=== PATIENT | male | born 1995 | race Two or more races ===

== ENCOUNTER 2017-09-06 12:45 | Emergency (ER) | payer OTHER ==
[~2017-09-06] VITALS: Ht 175.3 cm; Wt 74.8 kg
[~2017-09-06 12:45] MED LIST: LEVE500T9 PO
[2017-09-06 12:51] VITALS: BP 127/66
== END 2017-09-06 14:42 | disposition home or self-care (01) ==
LOC: ER 12:47
DX: M79.641 Pain in right hand (principal); M79.89 Other specified soft tissue disorders; G40.909 Epilepsy, unspecified, not intractable, without status epilepticus; W54.0XXA Bitten by dog, initial encounter; Y93.89 Activity, other specified; Y92.89 Other specified places as the place of occurrence of the external cause; Y99.8 Other external cause status
CPT/HCPCS: 99281; A4606; Z7610; Z7502

== ENCOUNTER 2017-09-20 09:06 | Emergency (ER) | payer OTHER ==
[~2017-09-20] VITALS: Ht 175.3 cm; Wt 77.1 kg
--- NOTE | 2017-09-20 09:20 | NUR ---
AAOX3, CAME TO ER C/O LEFT EYE PAIN/DISCOMFORT, EYELID SWELLING, NO INJURY. RR IS EVEN AND UNLABORED WITH NAD NOTED. SKIN IS WARM AND DRY. AWAITING MD FOR EVAL.
[2017-09-20] MEDS ORDERED: diphenhydrAMINE HCL 25 MG CAPSULE PO ONE (09:30)
[2017-09-20] MEDS ORDERED: diphenhydrAMINE HCL 25 MG CAPSULE ONE (09:32)
[2017-09-20 09:37] LABS: BASOPHILS % (AUTO) 0.6 % (0.0-2.0); EOSINOPHILS # (AUTO) 0.2 /CMM (0.0-0.7); EOSINOPHILS % (AUTO) 2.7 % (0.0-6.0); HEMATOCRIT 45 % (39-51); HEMOGLOBIN 15.5 g/dL (13.5-17.5); LYMPHOCYTES # (AUTO) 1.7 /CMM (0.8-4.8); LYMPHOCYTES % (AUTO) 30.7 % (20.0-44.0); MEAN CORPUSCULAR HEMOGLOBIN 29 PG (26.0-33.0); MEAN CORPUSCULAR HGB CONC 35 g/dl (31.0-36.0); MEAN CORPUSCULAR VOLUME 83 fL (80-96); MONOCYTES # (AUTO) 0.4 /CMM (0.1-1.30); MONOCYTES % (AUTO) 6.8 % (2.0-12.0); NEUTROPHILS # (AUTO) 3.3 /CMM (1.8-8.9); NEUTROPHILS % (AUTO) 59.2 % (43.0-81.0); PLATELET COUNT (AUTO) 198 /CMM (150-450); RDW COEFFICIENT OF VARIATION 13.2 (11.5-15.0); RED BLOOD CELL COUNT(AUTO) 5.43 MIL/uL (4.5-6.0); WHITE BLOOD COUNT (AUTO) 5.6 K/uL (4.3-11.0)
[2017-09-20 09:46] LABS: CALCIUM, SERUM 8.9 mg/dL (8.5-10.1); CREATININE 0.9 mg/dL (0.6-1.3); POTASSIUM 3.9 mmol/L (3.5-5.1)
[2017-09-20] MEDS ORDERED: IOHEXOL-300 100 ML VIAL IV ONE (09:56)
[2017-09-20] MEDS ORDERED: CT SWABBABLE VALVE TRANS SET 1 EA INFUS.SET MC ONE (09:57)
[2017-09-20] MEDS ORDERED: IV NS 0.9% 250 ML IV ONE (09:57)
[2017-09-20 10:50] VITALS: BP 125/78
--- NOTE | 2017-09-20 10:56 | NUR ---
IV removed. Catheter intact and site benign. Pressure and 4x4 applied to site. No bleeding noted.Patient discharged to home in stable condition. Written and verbal after care instructions given. Patient verbalizes understanding of instruction.
== END 2017-09-20 10:58 | disposition home or self-care (01) ==
LOC: ER 09:08
DX: J30.9 Allergic rhinitis, unspecified (principal); G40.909 Epilepsy, unspecified, not intractable, without status epilepticus; Z86.61 Personal history of infections of the central nervous system
CPT/HCPCS: 36415; 70450-TC; 70487-TC; 80048-TC; 83605-TC; 85025-TC; A4606; J7050; Q0163; Q9967; Z7610

== ENCOUNTER 2017-11-18 23:27 | Emergency (ER) | payer OTHER ==
[~2017-11-18] VITALS: Ht 172.7 cm; Wt 77.1 kg
[2017-11-18 23:32] VITALS: BP 130/85
[2017-11-19] MEDS: PSEUDOEPHEDRINE HCL 30 MG TABLET PO ONE (01:22)
== END 2017-11-19 01:23 | disposition home or self-care (01) ==
LOC: ER 23:28
DX: B30.9 Viral conjunctivitis, unspecified (principal); H66.92 Otitis media, unspecified, left ear; J02.9 Acute pharyngitis, unspecified; G03.9 Meningitis, unspecified
CPT/HCPCS: 99283; A4606; Z7610

== ENCOUNTER 2018-09-04 09:17 | Emergency (ER) | payer OTHER ==
[~2018-09-04] VITALS: Ht 172.7 cm; Wt 80.7 kg
--- NOTE | 2018-09-04 09:45 | NUR ---
PT BIB SELF AND DAD C/O DIZZINESS AND RUNNY NOSE X 3-4 DAYS. ALERT AND ORIENTED X 4, VERBALLY RESPONSIVE AND ABLE TO MAKE NEEDS KNOWN. SKIN WARM TO TOUCH, BREATHING EVENLY AND UNLABORED. ON ROOM AIR, KEPT COMFORTABLE. WILL CONTINUE TO MONITOR ACCORDINGLY.
[2018-09-04] MEDS ORDERED: KETOROLAC TROMETHAMINE INJ 30 MG/ML VIAL IV ONE (10:30)
[2018-09-04] MEDS ORDERED: ONDANSETRON HCL/PF 4 MG/2 ML VIAL IVP ONE (10:30)
[2018-09-04] MEDS ORDERED: IV NS 0.9% 1,000 ML BAG IV ONE (10:30)
[2018-09-04 10:32] LABS: BASOPHILS % (AUTO) 0.3 % (0.0-2.0); EOSINOPHILS % (AUTO) 1.8 % (0.0-6.0); HEMATOCRIT 49 % (39-51); LYMPHOCYTES # (AUTO) 1.2 /CMM (0.8-4.8); LYMPHOCYTES % (AUTO) 22.5 % (20.0-44.0); MEAN CORPUSCULAR HGB CONC 35 g/dl (31.0-36.0); MEAN CORPUSCULAR VOLUME 85 fL (80-96); MONOCYTES # (AUTO) 0.6 /CMM (0.1-1.30); NEUTROPHILS # (AUTO) 3.3 /CMM (1.8-8.9); NEUTROPHILS % (AUTO) 63.4 % (43.0-81.0); PLATELET COUNT (AUTO) 170 /CMM (150-450); RED BLOOD CELL COUNT(AUTO) 5.76 MIL/uL (4.5-6.0); WHITE BLOOD COUNT (AUTO) 5.1 K/uL (4.3-11.0)
[2018-09-04] MEDS ORDERED: KETOROLAC TROMETHAMINE 15 MG/ML VIAL ONE (10:34)
[2018-09-04] MEDS ORDERED: ONDANSETRON HCL/PF 4 MG/2 ML VIAL ONE (10:34)
[2018-09-04 10:42] LABS: CALCIUM, SERUM 9.5 mg/dL (8.5-10.1); POTASSIUM 3.6 mmol/L (3.5-5.1)
[2018-09-04 11:39] VITALS: BP 135/70
--- NOTE | 2018-09-04 11:41 | NUR ---
Patient discharged to home in stable condition. Written and verbal after care instructions given. Patient verbalizes understanding of instruction.IV removed. Catheter intact and site benign. Pressure and 4x4 applied to site. No bleeding noted.
== END 2018-09-04 11:40 | disposition home or self-care (01) ==
LOC: ER 09:21
DX: R42 Dizziness and giddiness (principal); J06.9 Acute upper respiratory infection, unspecified; G40.909 Epilepsy, unspecified, not intractable, without status epilepticus; Z98.890 Other specified postprocedural states
CPT/HCPCS: 36415; 80048; 85025; 96361; 96374; 96375; 99283; A4606; J1885; J2405; J7030; Z7610

== ENCOUNTER 2019-04-03 10:59 | Emergency (ER) | payer OTHER ==
[~2019-04-03] VITALS: Ht 175.3 cm; Wt 79.4 kg
[2019-04-03 11:06] VITALS: BP 113/73
== END 2019-04-03 13:24 | disposition home or self-care (01) ==
LOC: ER 10:59
DX: S56.812A Strain of other muscles, fascia and tendons at forearm level, left arm, initial encounter (principal); Z98.890 Other specified postprocedural states; Z79.899 Other long term (current) drug therapy; W18.39XA Other fall on same level, initial encounter; Y93.66 Activity, soccer; Y92.322 Soccer field as the place of occurrence of the external cause; Y99.8 Other external cause status
CPT/HCPCS: 73090-TC

== ENCOUNTER 2019-07-07 04:06 | Emergency (ER) | payer OTHER ==
[~2019-07-07] VITALS: Ht 175.3 cm; Wt 81.2 kg
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
[2019-07-07] MEDS ORDERED: LORAZEPAM 1 MG TABLET ONE (04:44)
--- NOTE | 2019-07-07 04:46 | NUR ---
MOBILE PHLEBOTOMIST AT BEDSIDE. LABS SENT.
[2019-07-07] MEDS ORDERED: LORAZEPAM 1 MG TABLET PO ONE (05:00)
[2019-07-07 05:09] LABS: CALCIUM, SERUM 8.7 mg/dL (8.5-10.1); POTASSIUM 3.6 mmol/L (3.5-5.1)
[2019-07-07] MEDS ORDERED: ACETAMINOPHEN 325 MG TABLET ONE (05:48)
--- NOTE | 2019-07-07 05:58 | NUR ---
Patient discharged to home in stable condition. Written and verbal after care instructions given. Patient verbalizes understanding of instruction.
[2019-07-07 05:59] VITALS: BP 122/67
[2019-07-07] MEDS ORDERED: ACETAMINOPHEN 325 MG TABLET PO ONE (06:00)
== END 2019-07-07 05:59 | disposition home or self-care (01) ==
LOC: ER 04:07
DX: G40.909 Epilepsy, unspecified, not intractable, without status epilepticus (principal); Z79.899 Other long term (current) drug therapy
CPT/HCPCS: 36415; 80048-TC; 80177

== ENCOUNTER 2019-11-08 00:50 | Emergency (ER) | payer SELFPAY ==
[~2019-11-08] VITALS: Ht 175.3 cm; Wt 80.3 kg
--- NOTE | 2019-11-08 01:00 | NUR ---
bib father for evaluation of possible seizure, pt currently A, Ox4. w/ no c.o pain or discomfort. PMHx of seizure , receiving Keppra BID. Pt was placed on a monitor . VSS. will cont to monitor
[2019-11-08] MEDS: IV NS 0.9% 1,000 ML BAG IV ONE (01:14)
[2019-11-08 01:18] LABS: BASOPHILS # (AUTO) 0.1 /CMM (0.0-0.2); BASOPHILS % (AUTO) 0.9 % (0.0-2.0); EOSINOPHILS % (AUTO) 1.6 % (0.0-6.0); HEMATOCRIT 46 % (39-51); HEMOGLOBIN 15.6 g/dL (13.5-17.5); LYMPHOCYTES # (AUTO) 2.6 /CMM (0.8-4.8); LYMPHOCYTES % (AUTO) 39.1 % (20.0-44.0); MEAN CORPUSCULAR HGB CONC 34 g/dl (31.0-36.0); MEAN CORPUSCULAR VOLUME 86 fL (80-96); MONOCYTES # (AUTO) 0.4 /CMM (0.1-1.30); MONOCYTES % (AUTO) 5.9 % (2.0-12.0); NEUTROPHILS # (AUTO) 3.5 /CMM (1.8-8.9); NEUTROPHILS % (AUTO) 52.5 % (43.0-81.0); PLATELET COUNT (AUTO) 170 /CMM (150-450); WHITE BLOOD COUNT (AUTO) 6.6 K/uL (4.3-11.0)
[2019-11-08 01:26] LABS: CALCIUM, SERUM 8.4 mg/dL (8.5-10.1); POTASSIUM 3.5 mmol/L (3.5-5.1)
[2019-11-08 01:58] VITALS: BP 66/121
== END 2019-11-08 01:59 | disposition home or self-care (01) ==
LOC: ER 00:50
DX: G40.909 Epilepsy, unspecified, not intractable, without status epilepticus (principal); F17.200 Nicotine dependence, unspecified, uncomplicated; Z98.890 Other specified postprocedural states; Z79.899 Other long term (current) drug therapy
CPT/HCPCS: 36415; 80048; 85025; 99283; J7030

== ENCOUNTER 2020-10-28 16:21 | Emergency (ER) | payer OTHER ==
[~2020-10-28] VITALS: Ht 175.3 cm; Wt 77.1 kg
--- NOTE | 2020-10-28 17:00 | NUR ---
HEADACHE X "FEW DAYS" PATIENT A/OX4, BREATHING EVEN AND UNLABORED, NO S/SX OF STROKE AT THIS TIME. CONNECTED TO THE MONITOR.
--- NOTE | 2020-10-28 17:10 | NUR ---
IV LINE ESTABLISHED.
[2020-10-28] MEDS ORDERED: DEXAMETHASONE SOD PHOSPHATE 4 MG/ML VIAL ONE (17:35)
[2020-10-28] MEDS ORDERED: KETOROLAC TROMETHAMINE INJ 30 MG/ML VIAL ONE (17:35)
[2020-10-28 17:45] VITALS: BP 132/77
[2020-10-28] MEDS: DEXAMETHASONE SOD PHOSPHATE 10 MG/ML VIAL IV ONE (17:46)
[2020-10-28] MEDS: KETOROLAC TROMETHAMINE INJ 30 MG/ML VIAL IV ONE (17:47)
[2020-10-28] MEDS: IV NS 0.9% 1,000 ML BAG IV ONE (17:47)
[2020-10-28] MEDS ORDERED: IBUP-1955 PO (18:11)
== END 2020-10-28 18:21 | disposition home or self-care (01) ==
LOC: ER 16:29
DX: R51.9 Headache, unspecified (principal); G40.909 Epilepsy, unspecified, not intractable, without status epilepticus; F17.200 Nicotine dependence, unspecified, uncomplicated; Z98.890 Other specified postprocedural states; Z79.899 Other long term (current) drug therapy
CPT/HCPCS: 96361; 96374; 96375; 99284; J1100; J1885; J7030

== ENCOUNTER 2021-12-16 01:32 | Emergency (ER) | payer OTHER ==
[~2021-12-16] VITALS: Ht 175.3 cm; Wt 80.7 kg
[~2021-12-16 01:32] MED LIST changes: +IBUP-1955 PO
--- NOTE | 2021-12-16 02:10 | NUR ---
BIBSELF C/O HEADACHE X3 DAYS AND ABD PAIN TODAY. -N/V SEEN AT [facility] OR [facility] FOR SORE THROAT PLACED ON AMOXICILLIN. PATIENT ALERT AND ORIENTED X3. AMBULATORY WITH NON LABORED BREATHING IN BED 02 ON MONITOR AWAITING MD GREER./
--- NOTE | 2021-12-16 02:23 | NUR ---
IV LINE ESTABLISHED, [id number]
--- NOTE | 2021-12-16 02:24 | NUR ---
BLOOD COLLECTED AND SENT TO LAB
[2021-12-16] MEDS ORDERED: KETOROLAC TROMETHAMINE INJ 30 MG/ML VIAL ONE (02:25)
[2021-12-16] MEDS ORDERED: ONDANSETRON HCL/PF 4 MG/2 ML VIAL ONE (02:25)
[2021-12-16] MEDS ORDERED: KETOROLAC TROMETHAMINE INJ 30 MG/ML VIAL IV ONE (02:30)
[2021-12-16] MEDS ORDERED: ONDANSETRON HCL/PF 4 MG/2 ML VIAL IVP ONE (02:30)
[2021-12-16] MEDS ORDERED: IV NS 0.9% 500 ML BAG IV ONE (02:30)
[2021-12-16 02:44] LABS: BASOPHILS % (AUTO) 0.4 % (0.0-2.0); EOSINOPHILS % (AUTO) 0.6 % (0.0-6.0); HEMATOCRIT 44 % (39-51); LYMPHOCYTES # (AUTO) 1.3 K/uL (0.8-4.8); LYMPHOCYTES % (AUTO) 22.6 % (20.0-44.0); MEAN CORPUSCULAR HGB CONC 35 g/dl (31.0-36.0); MEAN CORPUSCULAR VOLUME 84 fL (80-96); MONOCYTES # (AUTO) 0.6 K/uL (0.1-1.30); MONOCYTES % (AUTO) 9.9 % (2.0-12.0); NEUTROPHILS % (AUTO) 66.5 % (43.0-81.0); PLATELET COUNT (AUTO) 173 K/uL (150-450); RED BLOOD CELL COUNT(AUTO) 5.19 MIL/uL (4.5-6.0)
[2021-12-16 02:54] LABS: CALCIUM, SERUM 8.9 mg/dL (8.5-10.1); POTASSIUM 3.6 mmol/L (3.5-5.1)
[2021-12-16 03:01] LABS: ALBUMIN 4.1 g/dL (3.4-5.0); BILIRUBIN,DIRECT 0.1 mg/dL (0.0-0.2); BILIRUBIN,TOTAL 0.5 mg/dL (0.2-1.0); TOTAL PROTEIN, SERUM 8.2 g/dL (6.4-8.2)
[2021-12-16 04:11] VITALS: BP 151/89
--- NOTE | 2021-12-16 04:11 | NUR ---
IV removed. Catheter intact and site benign. Pressure and 4x4 applied to site. No bleeding noted.
--- NOTE | 2021-12-16 04:11 | NUR ---
Patient discharged to home in stable condition. Written and verbal after care instructions given. Patient verbalizes understanding of instruction.
== END 2021-12-16 04:12 | disposition home or self-care (01) ==
LOC: ER 01:45
DX: R51.9 Headache, unspecified (principal); F17.200 Nicotine dependence, unspecified, uncomplicated; Z86.69 Personal history of other diseases of the nervous system and sense organs; Z79.899 Other long term (current) drug therapy
CPT/HCPCS: 36415; 70450; 80048; 80076; 85025; 96361; 96374; 96375; 99284; J1885; J2405; J7040

== ENCOUNTER 2023-07-24 10:13 | Emergency (ER) | payer OTHER ==
[~2023-07-24] VITALS: Ht 175.3 cm; Wt 80.7 kg
[2023-07-24 11:50] VITALS: BP 131/87; TEMP 97.9; O2SAT 100
== END 2023-07-24 11:50 | disposition home or self-care (01) ==
LOC: ER 10:20
DX: G40.909 Epilepsy, unspecified, not intractable, without status epilepticus (principal)

== ENCOUNTER 2024-03-22 17:16 | Emergency (ER) | payer OTHER ==
[~2024-03-22] VITALS: Ht 175.3 cm; Wt 86.2 kg
[2024-03-22 18:10] VITALS: BP 134/76; TEMP 98; O2SAT 100
[2024-03-22] MEDS ORDERED: FLUT16SP16 BNOSTRILS (18:50)
== END 2024-03-22 19:46 | disposition home or self-care (01) ==
LOC: ER 17:46
DX: B34.9 Viral infection, unspecified (principal); R56.9 Unspecified convulsions; F17.200 Nicotine dependence, unspecified, uncomplicated

== ENCOUNTER 2024-10-05 04:19 | Emergency (ER) | payer OTHER ==
[~2024-10-05] VITALS: Ht 175.3 cm; Wt 86.2 kg
[~2024-10-05 04:19] MED LIST changes: +FLUT16SP16 BNOSTRILS
[2024-10-05 06:00] LABS: CALCIUM, SERUM 8.5 mg/dL (8.5-10.1); CARBON DIOXIDE 29 mmol/L (21-32); CHLORIDE 106 mmol/L (98-107); CREATININE 1.2 mg/dL (0.6-1.3); GLUCOSE 108 mg/dL (74-106); POTASSIUM 3.4 mmol/L (3.5-5.1); SODIUM SERUM 141 mmol/L (136-145); UREA NITROGEN, BLOOD 18 mg/dL (7-18)
[2024-10-05 06:04] LABS: ALANINE AMINOTRANSFERASE 42 U/L (12-78); ALBUMIN 4.5 g/dL (3.4-5.0); ALCOHOL, BLOOD < 3 mg/dL (0-10); ALKALINE PHOSPHATASE 93 U/L (46-116); ASPARTATE AMINOTRANSFERASE 26 U/L (15-37); BILIRUBIN,DIRECT 0.1 mg/dL (0.0-0.2); BILIRUBIN,TOTAL 0.4 mg/dL (0.2-1.0); TOTAL PROTEIN, SERUM 7.7 g/dL (6.4-8.2)
[2024-10-05 06:05] LABS: AMPHETAMINE, URINE NEGATIVE (NEGATIVE); BARBITURATE, URINE NEGATIVE (NEGATIVE); BENZODIAZEPINE, URINE NEGATIVE (NEGATIVE); CANNABINOID, URINE POSITIVE (NEGATIVE); COCCAINE, URINE NEGATIVE (NEGATIVE); OPIATE, URINE NEGATIVE (NEGATIVE); PHENCYCLIDINE SCREEN,URINE NEGATIVE (NEGATIVE)
[2024-10-05 06:10] LABS: PARTIAL THROMBOPLASTIN TIME 27.5 SEC (24.3-34.3); PROTHROMBIN TIME 10.6 SECS (9.2-11.1)
[2024-10-05] MEDS: LEVETIRACETAM (500MG) 1,000 MG in PREMIX 90 EA IV STA (06:40)
[2024-10-05 07:31] VITALS: BP 135/69; TEMP 98.4; O2SAT 99
== END 2024-10-05 07:32 | disposition home or self-care (01) ==
LOC: ER 04:41
DX: G40.909 Epilepsy, unspecified, not intractable, without status epilepticus (principal); R53.83 Other fatigue; F17.200 Nicotine dependence, unspecified, uncomplicated; Z79.899 Other long term (current) drug therapy
CPT/HCPCS: 99283; 96374; 80048; 80076; 36415; 85730; 82962; 80320; 80307; A4216; A4223; J1953; G0480

== ENCOUNTER 2025-08-09 03:10 | Emergency (ER) | payer OTHER ==
[~2025-08-09] VITALS: Ht 175.3 cm; Wt 83.9 kg
[2025-08-09] MEDS ORDERED: IBUPROFEN 400 MG TABLET ONE (04:38)
[2025-08-09] MEDS: IBUPROFEN 400 MG TABLET PO ONE (04:40)
[2025-08-09 05:49] VITALS: BP 125/75; TEMP 98.4; O2SAT 97
== END 2025-08-09 05:50 | disposition home or self-care (01) ==
LOC: ER 03:13
DX: J02.9 Acute pharyngitis, unspecified (principal); B34.9 Viral infection, unspecified; F17.200 Nicotine dependence, unspecified, uncomplicated; Z79.899 Other long term (current) drug therapy; Z86.61 Personal history of infections of the central nervous system
CPT/HCPCS: 86403-TC; 87070-TC